=== PATIENT | male | born 1980 | race Caucasian/White ===

== ENCOUNTER 2022-11-02 10:17 | Emergency (ER) | payer SELFPAY ==
[2022-11-02] MEDS ORDERED: Sodium Chloride 0.9% 2.5 ML Syringe FLUSH PRN (10:30)
[2022-11-02] MEDS ORDERED: Sodium Chloride 0.9% 10 ML Syringe FLUSH PRN (10:30)
[2022-11-02] MEDS ORDERED: Sodium Chloride 0.9% 1,000 ML IV STA (10:50)
[2022-11-02] MEDS ORDERED: Ampicillin/Sulbactam Na 3 GM in Sodium Chloride 0.9% 100 ML IV STA (10:51)
[2022-11-02 11:23] LABS: CARBON DIOXIDE,CO2 26.5 mmol/L (21.0-32.0); POTASSIUM,K 3.8 mmol/L (3.5-5.1)
[2022-11-02 13:08] LABS: CORONAVIRUS COVID-19 NAA NEGATIVE (NEGATIVE); INFLUENZA A NAA NEGATIVE (NEGATIVE); INFLUENZA B NAA NEGATIVE (NEGATIVE); RESPIRATORY SYNCYTIAL VIR NAA NEGATIVE (NEGATIVE)
[2022-11-02] MEDS ORDERED: Iopamidol 755 MG/ML 500 ML Multipack Bottle IVPUSH STA (13:31)
[2022-11-02] MEDS ORDERED: Lactated Ringers 1,000 ML IV ONE (13:47)
[2022-11-02] MEDS ORDERED: Ketamine 500 mg/10 ML MDV IV ONE (13:47)
[2022-11-02] MEDS ORDERED: fentaNYL/Normal Saline 2,500 MCG in Premix Bag 1 BAG IV PRN (13:48)
[2022-11-02] MEDS ORDERED: Etomidate 2 MG/ML 20 ML SDV IVPUSH ONE (13:49)
[2022-11-02] MEDS ORDERED: Rocuronium 100 MG/10 ML MDV IV STA (13:50)
[2022-11-02] MEDS ORDERED: Lidocaine 4% Top Soln 50 ML Bottle MUCMEM ONE (13:56)
[2022-11-02] MEDS ORDERED: fentaNYL 100 MCG/2 ML SDV ONE ×2 (14:02→14:24)
[2022-11-02] MEDS ORDERED: Propofol 200 MG/20 ML SDV ONE (14:04)
[2022-11-02] MEDS ORDERED: fentaNYL 2,500 MCG in Sodium Chloride 0.9% 200 ML IV PRN (14:15)
[2022-11-02] MEDS ORDERED: Glycopyrrolate 0.2 MG/ML SDV ONE (15:40)
[2022-11-02] MEDS ORDERED: Ondansetron 4 MG/2 ML SDV ONE ×2 (15:41)
[2022-11-02] MEDS ORDERED: Lidocaine 2% 100 MG/5 ML Syringe ONE (15:41)
[2022-11-02] MEDS ORDERED: Lidocaine 2% 11 ML Jelly Filled Syringe ONE (15:41)
== END 2022-11-02 18:04 ==
LOC: MW.ED 10:17
DX: K12.2 Cellulitis and abscess of mouth (principal); Z20.822 Contact with and (suspected) exposure to COVID-19
CPT/HCPCS: 0241U; 31500; 36415; 70491; 71260; 80053; 83605; 85025; 87040; 87651; 96361; 96365; 99285; A9270; J0295; J1790; J2405; J2704; J3010; J3490; J7030; J7120; Q9967; 99291; J7050